=== PATIENT | female | born 1930 | race Hispanic/Latino ===

== ENCOUNTER 2017-12-01 12:45 | Outpatient (CLI) | payer MEDICARE, MEDICAID ==
--- NOTE | 2017-12-01 13:42 | RAD ---
CERVICAL SPINE THREE VIEWS WITH FLEXION, EXTENSION, AND NEUTRAL POSITIONIN12/01/2017 HISTORY: Cervical spondylosis. COMPARISON: 09/17/2017 FINDINGS: There is loss of the normal lordotic curvature of the cervical spine, which is also noted on the prio r exam. The C1 to cervicothoracic junction is seen on the lateral views of the cervical spine. Ther e is a question of trace anterolisthesis of C7 on T1. No additional level of subluxation is seen. T he vertebral body heights are within normal limits. Osteophytes are seen anteriorly at multiple leve ls. The prevertebral soft tissues are within normal limits. IMPRESSION: 1. Suggestion of trace anterolisthesis of C7 on T1, which is only seen on the neutral positioning, b ut this level is partially obscured on this exam, limiting adequate evaluation. No additional level of subluxation is appreciated. 2. Degenerative change in the cervical spine. POS: [facility]
--- NOTE | 2017-12-01 14:13 | MRI ---
MRI CERVICAL SPINE WITHOUT CONTRAST: HISTORY: Chronic neck pain for years and unsteady gait. Cervical spondylosis without myelopathy. COMPARISON: None. TECHNIQUE: Multiplanar, multisequence MR images were obtained of the cervical spine without contrast. FINDINGS: Generalized disk desiccation is seen. The vertebral bodies demonstrate normal height and alignment w ithout fracture or subluxation. The visualized cord demonstrates normal signal throughout. The craniocervical junction is unremarkab le. The prevertebral and paraspinal soft tissues are unremarkable. C2-C3: Unremarkable. C3-C4: Unremarkable. C4-C5: A moderate disk osteophyte complex is seen. Mild bilateral posterior facet arthrosis. Moder ate to severe central canal stenosis. Severe bilateral neural foraminal stenosis. C5-C6: A moderate disk osteophyte complex is seen. Mild bilateral posterior facet arthrosis. Moder ate to severe central canal stenosis. Moderate bilateral neural foraminal stenosis. C6-C7: A moderate disk osteophyte complex is seen. Mild bilateral posterior facet arthrosis. Moder ate to severe central canal stenosis. Moderate to severe bilateral neural foraminal stenosis, left g reater than right. C7-T1: Unremarkable. IMPRESSION: Degenerative changes of the cervical spine, as above. POS: [facility]
== END 2017-12-01 12:46 | disposition home or self-care (01) ==
LOC: MRI 12:45
PROVIDERS: ATTEND Nurse Practitioner Family
DX: M47.812 Spondylosis without myelopathy or radiculopathy, cervical region (principal)
CPT/HCPCS: 72040; 72141